=== PATIENT | male | born 1985 | race Caucasian/White ===

== ENCOUNTER 2018-04-26 14:13 | Emergency (ER) | payer BC ==
[2018-04-26 14:34] VITALS: TEMP 97
[2018-04-26 14:35] VITALS: BMI 28.2
[2018-04-26 14:42] VITALS: RESP 18
[2018-04-26] MEDS ORDERED: Dexamethasone 10 MG in Sodium Chloride 0.9% 50 ML IV STA (16:13)
[2018-04-26] MEDS ORDERED: Oxycodone/Acetaminophen 5/325 mg Tab PO STA (16:14)
--- NOTE | 2018-04-26 16:30 | ED PDOC ---
History of Present Illness History of Present Illness: 33 year old male presents with several days of worsening of shortness of breath and chest pressure associated nonproductive cough. He states pressure is worse in the mid chest/sternal region and feels like a sharp stabbing pain when he breathes deeply or coughs. Patient felt febrile at home but otherwise, no complaints, no nausea, no vomiting. He recently moved here from [place], [place] and has no established PMD. HPI: Influenza Time Seen by Provider: 04/26/18 16:06 Chief Complaint: Cough, Cold, Congestion Chief Complaint (Provider): Cough, Cold, Congestion History Per: Patient Exam Limitations: no limitations Onset/Duration Of Symptoms: Days (several) Symptoms include: cough, chest pain (pressure), other (shortness of breath). denies: vomiting Past Medical History Reviewed: Historical Data, Nursing Documentation, Vital Signs Vital Signs: Last Vital Signs Temp 97 F L 04/26/18 14:40 Pulse 103 H 04/26/18 14:40 Resp 18 04/26/18 14:40 BP 126/75 04/26/18 14:40 Pulse Ox 98 04/26/18 14:40 - Medical History PMH: No Chronic Diseases - Family History Family History: States: Unknown Family Hx - Home Medications Home Medications: Ambulatory Orders Medication Instructions Recorded Amoxicillin 500 mg PO BID #20 tablet 04/26/18 - Allergies Allergies/Adverse Reactions: Allergies Allergy/AdvReac Type Severity Reaction Status Date / Time No Known Allergies Allergy Verified 04/26/18 14:40 Review of Systems ROS Statement: Except As Marked, All Systems Reviewed And Found Negative Constitutional: Positive for: Fever (subjective) Cardiovascular: Positive for: Other (chest pressure) Respiratory: Positive for: Cough, Shortness of Breath Gastrointestinal: Negative for: Nausea, Vomiting Physical Exam - Reviewed Nursing Documentation Reviewed: Yes Vital Signs Reviewed: Yes - Physical Exam Appears: Positive for: No Acute Distress Head Exam: Positive for: ATRAUMATIC, NORMOCEPHALIC ENT: Positive for: Other (no oropharynx swelling). Negative for: Pharyngeal Erythema Neck: Positive for: Normal Cardiovascular/Chest: Positive for: Regular Rate, Rhythm, Other (reproducible pain on palpation of sternum). Negative for: Murmur Respiratory: Negative for: Crackles, Rhonchi, Wheezing Gastrointestinal/Abdominal: Positive for: Normal Exam, Soft. Negative for: Tenderness Back: Positive for: Normal Inspection Extremity: Positive for: Normal ROM (upper and lower). Negative for: Pedal Edema, Deformity Neurologic/Psych: Positive for: Alert, Oriented (x3) Medical Decision Making Medical Decision Making: Time: 1611 Chest pain, noncardiac in etiology, most likely bronchitis Initial Plan: --EKG --CXR --Basic labs --Dexamethasone and Percocet for pain --Troponin to rule out cardiac etiology 1744: Labs WNL. CXR unremarkable. Vitals stable. PT to be discharged home with Rx for antibiotics for bronchitis and return parameters discussed. Pt given referral for outpatient clinic follow up. Scribe Attestation: Documented by Rosa M Larios, acting as a scribe for Randi Moon MD Provider Scribe Attestation: All medical record entries made by the Scribe were at my direction and person ally dictated by me. I have reviewed the chart and agree that the record accurately reflects my personal performance of the history, physical exam, medical decision making, and the department course for this patient. I have also personally directed, reviewed, and agree with the discharge instructions and disposition. - Laboratory Results Result Diagrams: 04/26/18 15:53 04/26/18 15:53 - ECG O2 Sat by Pulse Oximetry: 98 (RA) Pulse Ox Interpretation: Normal Disposition - Clinical Impression Clinical Impression: Cough, Bronchitis - Disposition Referrals: [facility] [Outside] Disposition: Routine/Home Disposition Time: 17:45 Condition: IMPROVED Additional Instructions: Take medications as prescribed. Take Tylenol or Motrin for pain. Return to the emergency department if symptoms worsen or if new symptoms develop. Prescriptions: Amoxicillin 500 mg PO BID #20 tablet Forms: [employer] (Burkinan) Print Language: AUSTRIAN
[2018-04-26] MEDS ORDERED: Oxycodone/Acetaminophen 5/325 mg Tab ONE (16:32)
[2018-04-26 17:03] LABS: BASO # 0.1 K/uL (0.0-0.2); BASO % 0.6 % (0.0-2.0); EOS # 0.1 K/uL (0.0-0.7); EOS % 0.7 % (0.0-4.0); HEMOGLOBIN 12.9 g/dL (12.0-18.0); LYMPH # 1.5 K/uL (1.0-4.3); LYMPH % 12.1 % (20.0-40.0); MEAN CELL VOLUME 92.3 fl (80.0-94.0); MEAN CORPUSCULAR HEMOGLOBIN 29.6 pg (27.0-31.0); MEAN PLATELET VOLUME 7.6 fl (7.2-11.7); MONO # 0.5 K/uL (0.0-0.8); MONO % 4.5 % (0.0-10.0); NEUT # 9.9 K/uL (1.8-7.0); NEUT % 82.1 % (50.0-75.0); NRBC % 0.2 % (0.0-0.0); RBC 4.36 Mil/uL (4.40-5.90); RED CELL DISTRIBUTION WIDTH 14.1 % (11.5-14.5); WHITE BLOOD COUNT 12.1 K/uL (4.8-10.8)
[2018-04-26 17:03] LABS: VENOUS BLOOD GAS BASE EXCESS -0.5 mmol/L (0.0-2.0); VENOUS BLOOD GAS PCO2 51 mmHg (40-60); VENOUS BLOOD GAS PO2 23 mm/Hg (30-55); VENOUS BLOOD PH 7.32 (7.32-7.43)
[2018-04-26 17:10] LABS: BLOOD UREA NITROGEN 16 mg/dl (9-20); CALCIUM 9.5 mg/dL (8.4-10.2); GFR NON-AFRICAN AMERICAN > 60
--- NOTE | 2018-04-26 17:30 | RAD ---
Date of service: 04/26/2018 HISTORY: mid sternal CP and cough COMPARISON: No prior. TECHNIQUE: Chest PA and lateral FINDINGS: LUNGS: No active pulmonary disease. PLEURA: No significant pleural effusion identified. No pneumothorax apparent. CARDIOVASCULAR: No aortic atherosclerotic calcification present. Calcified lymph nodes are granulomata are seen at the mediastinum. Normal cardiac size. No pulmonary vascular congestion. OSSEOUS STRUCTURES: No significant abnormalities. VISUALIZED UPPER ABDOMEN: Probable calcified lymph nodes are granulomata are seen at the central abdomen in the lateral projection and are not well captured in the frontal projection. OTHER FINDINGS: None. IMPRESSION: No acute cardiopulmonary disease appreciable. Calcified granulomata or lymph nodes are seen at the mediastinum and likely in the abdomen as well.
[2018-04-26 18:53] VITALS: BP 125/77; PULSE 78; O2SAT 100
--- NOTE | 2018-04-26 22:37 | CARD ---
APPROVED REPORT Date of service: 04/26/2018 EKG Measurement Heart [id number] <Conclusion> Normal sinus rhythm Normal ECG
== END 2018-04-26 18:52 | disposition home or self-care (01) ==
LOC: H.ER 14:13
DX: R05 Cough (principal); J40 Bronchitis, not specified as acute or chronic
CPT/HCPCS: 71046; 80048; 82803; 84484; 85025; 87804; 93005; 96374; 99283; J1100

== ENCOUNTER 2018-04-29 09:29 | Emergency (ER) | payer BC ==
[2018-04-29 09:29] VITALS: BMI 28.2
[2018-04-29] MEDS ORDERED: Sodium Chloride 0.9% 1,000 ML IV STA (10:13)
--- NOTE | 2018-04-29 10:38 | RAD ---
Date of service: 04/29/2018 HISTORY: Chest pain COMPARISON: No prior. TECHNIQUE: Chest PA and lateral FINDINGS: LINES AND TUBES: None. LUNG AND PLEURA: The lungs are well inflated and clear. There is bibasilar subsegmental atelectasis. No pleural effusion or pneumothorax. HEART AND MEDIASTINUM: The heart is not enlarged. No aortic atherosclerotic calcification present. The hilar contours are within normal limits. There are calcified right paratracheal lymph nodes. SKELETAL STRUCTURES: The bony structures are within normal limits for the patient's age. VISUALIZED UPPER ABDOMEN: Normal. OTHER FINDINGS: None. IMPRESSION: No active pulmonary disease.
[2018-04-29 11:09] LABS: VENOUS BLOOD GAS BASE EXCESS 4.5 mmol/L (0.0-2.0); VENOUS BLOOD GAS PCO2 46 mmHg (40-60); VENOUS BLOOD GAS PO2 22 mm/Hg (30-55); VENOUS BLOOD PH 7.42 (7.32-7.43)
[2018-04-29 11:15] LABS: BASO % 0.2 % (0.0-2.0); EOS % 0.1 % (0.0-4.0); HEMOGLOBIN 12.8 g/dL (12.0-18.0); LYMPH # 1.1 K/uL (1.0-4.3); LYMPH % 8.5 % (20.0-40.0); MEAN CELL VOLUME 91.3 fl (80.0-94.0); MEAN CORPUSCULAR HEMOGLOBIN 30.1 pg (27.0-31.0); MONO # 0.8 K/uL (0.0-0.8); MONO % 6.1 % (0.0-10.0); NEUT # 11.3 K/uL (1.8-7.0); NEUT % 85.1 % (50.0-75.0); NRBC % 0.1 % (0.0-0.0); PLATELET COUNT 392 K/uL (130-400); RBC 4.23 Mil/uL (4.40-5.90); RED CELL DISTRIBUTION WIDTH 14.5 % (11.5-14.5); WHITE BLOOD COUNT 13.2 K/uL (4.8-10.8)
[2018-04-29 12:16] LABS: ALBUMIN 3.4 g/dL (3.5-5.0); ALT/SGPT 71 U/L (21-72); AST/SGOT 43 U/L (17-59); BLOOD UREA NITROGEN 18 mg/dl (9-20); CALCIUM 8.4 mg/dL (8.4-10.2); GFR NON-AFRICAN AMERICAN > 60
[2018-04-29 12:26] LABS: B-TYPE NATRIURETIC PEPTIDE 151 pg/ml (0-450)
[2018-04-29 12:48] LABS: ANISOCYTOSIS SLIGHT; BANDS 1 % (0-2); BASOPHIL 1 % (0-2); LARGE PLATELETS PRESENT; LYMPHOCYTE 16 % (20-50); MONOCYTE 6 % (0-10); NEUTROPHIL 76 % (42-75); PLATELET ESTIMATE NORMAL (NORMAL); TOTAL CELLS COUNTED 100
[2018-04-29 13:02] LABS: URINE BILIRUBIN NEGATIVE (NEGATIVE); URINE BLOOD NEGATIVE (NEGATIVE); URINE CLARITY CLEAR (Clear); URINE COLOR YELLOW (YELLOW); URINE GLUCOSE (UA) NEG (Normal); URINE LEUKOCYTE ESTERASE NEG Leu/uL (Negative); URINE PROTEIN NEGATIVE (NEGATIVE)
--- NOTE | 2018-04-29 13:13 | ED PDOC ---
History of Present Illness History of Present Illness: Reynaldo Donovan is a 33 year old male, with no significant past medical history, who presents to the emergency department complaining of flu- like symptoms such as headache, cough, throat pain, myalgias, nausea and chest tightness with deep breaths. Patient was seen here x3 days ago with similar symptoms. Work up was unremarkable, flu test was negative. Patient was sent home with Azithromycin, however he returned for reevaluation due to persistent symptoms. Patient states he completed a course of antibiotics for throat infection. He denies any abdominal pain, rash, photophobia or syncope. Patient did not receive a flu shot. No further medical complaints. PMD: None provided. HPI: Influenza Time Seen by Provider: 04/29/18 09:45 Chief Complaint: Shortness Of Breath Chief Complaint (Provider): flu-like symptoms History Per: Patient Exam Limitations: no limitations Onset/Duration Of Symptoms: Days (x3) Symptoms include: headache, bodyaches, sore throat, cough, chest pain (tightne ss). denies: rash, blurry vision Past Medical History Reviewed: Historical Data, Nursing Documentation, Vital Signs Vital Signs: Last Vital Signs Temp 101.2 F H 04/29/18 10:07 Pulse 120 H 04/29/18 10:07 Resp 20 04/29/18 10:07 BP 122/72 04/29/18 10:07 Pulse Ox 95 04/29/18 10:07 - Medical History PMH: No Chronic Diseases Other PMH: hodgkin's lymphoma - Surgical History Other surgeries: left knee and sinus surgery - Family History Family History: States: Unknown Family Hx - Social History Current smoker - smoking cessation education provided: No Alcohol: Social Drugs: Denies - Home Medications Home Medications: Ambulatory Orders Medication Instructions Recorded Amoxicillin 500 mg PO BID #20 tablet 04/26/18 Azithromycin [Z-Eleazar] 250 mg PO DAILY #6 tab 04/26/18 Ibuprofen [Motrin Tab] 600 mg PO Q6 PRN #15 tab 04/29/18 Ondansetron ODT [Zofran ODT] 4 mg PO Q6 PRN #10 odt 04/29/18 Oseltamivir [Tamiflu] 75 mg PO BID #10 cap 04/29/18 - Allergies Allergies/Adverse Reactions: Allergies Allergy/AdvReac Type Severity Reaction Status Date / Time No Known Allergies Allergy Verified 04/26/18 14:40 Review of Systems ROS Statement: Except As Marked, All Systems Reviewed And Found Negative Constitutional: Positive for: Other (myalgias) ENT: Positive for: Throat Pain Respiratory: Positive for: Cough Gastrointestinal: Positive for: Nausea Skin: Negative for: Rash Neurological: Positive for: Headache Physical Exam - Reviewed Nursing Documentation Reviewed: Yes Vital Signs Reviewed: Yes - Physical Exam Appears: Positive for: Non-toxic, Uncomfortable Head Exam: Positive for: ATRAUMATIC, NORMAL INSPECTION, NORMOCEPHALIC Skin: Positive for: Normal Color, Warm, Dry Eye Exam: Positive for: Normal appearance, EOMI, PERRL ENT: Positive for: Pharyngeal Erythema (throat mildly erythematous ) Neck: Positive for: Normal, Painless ROM Cardiovascular/Chest: Positive for: Regular Rate, Rhythm. Negative for: Murmur Respiratory: Positive for: Normal Breath Sounds. Negative for: Respiratory Distress Gastrointestinal/Abdominal: Positive for: Normal Exam, Soft. Negative for: Tenderness, Guarding, Rebound Back: Positive for: Normal Inspection. Negative for: L CVA Tenderness, R CVA Tenderness, Vertebral Tenderness Extremity: Positive for: Normal ROM (upper and lower extremities). Negative for: Deformity, Swelling Neurologic/Psych: Positive for: Alert, Oriented Medical Decision Making Medical Decision Making: Time: 09:45 Initial Impression: Influenza, cough Initial Plan: --VBG Shock panel --EKG --B-Type Natriuretic Peptide --CMP --Troponin I --CBC w/ differential --Chest two views (PA/LAT) [RAD] --Sodium Chloride 1,000 ml IV 1,000 mls/hr --Tamiflu Cap 75 mg PO --Tylenol 325 mg tab 650 mg PO --Blood culture --Influenza A B --Urinalysis --Reevaluation -Retested bloodwork. Lactate was normal, wbc count mildly elevated but similar to prior. -Flu test now positive. Given persistent symptoms, will initiate Tamiflu and follow up with PMD and support of care. 13:15 Upon provider reevaluation patient reports feeling better, is medically stable, and requires no further treatment in the ED at this time. Patient will be discharged home with prescription for Tamiflu, Zofran and Motrin. Counseling was provided and all questions were answered regarding diagnosis and need for follow up with PMD. There is agreement to discharge plan. Return if symptoms persist or worsen. Scribe Attestation: Documented by Bruce Santo, acting as a scribe for Toby Ruiz MD. Provider Scribe Attestation: All medical record entries made by the Scribe were at my direction and personally dictated by me. I have reviewed the chart and agree that the record accurately reflects my personal performance of the history, physical exam, medical decision making, and the department course for this patient. I have also personally directed, reviewed, and agree with the discharge instructions and disposition. - Laboratory Results Result Diagrams: 04/29/18 10:55 04/29/18 11:45 - ECG O2 Sat by Pulse Oximetry: 95 (RA) Pulse Ox Interpretation: Normal Disposition - Clinical Impression Clinical Impression: Influenza, Cough - Disposition Referrals: Tal Contreras MD [Staff Provider] - Disposition: Routine/Home Disposition Time: 13:15 Condition: STABLE Additional Instructions: Stop any other antibiotics, start tamiflu 2x daily for 5 days. Avoid contact with others as flu is very contagious. Return to ER for any difficulty breathing, weakness, worsening symptoms or pain or any concern. Drink plenty of fluids. Prescriptions: Ibuprofen [Motrin Tab] 600 mg PO Q6 PRN #15 tab PRN Reason: Pain, Moderate (4-7) Ondansetron ODT [Zofran ODT] 4 mg PO Q6 PRN #10 odt PRN Reason: Nausea/Vomiting Oseltamivir [Tamiflu] 75 mg PO BID #10 cap Instructions: Flu, Adult (DC) Forms: [employer] ([place]awk), [facility] School/Work Excuse
--- NOTE | 2018-04-29 19:01 | CARD ---
APPROVED REPORT Date of service: 04/29/2018 EKG Measurement Heart [id number] <Conclusion> Sinus tachycardia Otherwise normal ECG
[2018-04-29 20:08] VITALS: BP 130/56; PULSE 90; RESP 18; TEMP 98.2; O2SAT 99
== END 2018-04-29 13:50 | disposition home or self-care (01) ==
LOC: H.ER 09:29
DX: J11.1 Influenza due to unidentified influenza virus with other respiratory manifestations (principal); R05 Cough; M79.10 Myalgia, unspecified site
CPT/HCPCS: 71046; 80053; 81003; 82803; 83880; 84484; 85025; 87040; 87149; 87181; 87205; 87804; 93005; 96374; 99284; J1885; J7030